=== PATIENT | female | born 1935 | race Caucasian/White ===

== ENCOUNTER 2016-09-09 17:18 | Emergency (ER) | payer MEDICARE, BC ==
[~2016-09-09 17:18] MED LIST: ACET500CAP PO; ALIGN PO; AMITIZA8 MCG PO; ATRONASAL3 NAS; ATV1 PO; B12 INJECTION; BIST PO; CALTRA600D PO; CALTRAT600 PO; CHARCOAL PO; COMBIGAN0.2 MG/0.5 OPH; CORRECTOL5 MG PO; FIBERCON PO; FISH-EPA1000 MG PO; FLORASTOR250 MG PO; GAS-X80 MG PO; HCTZ25B PO; I10 PO; KLOR-CON M2020 MEQ PO; L20 PO; LOTEMAX OPH SUSP5 ML OPH; LUMIGAN2.5 ML OPH; MAG OXIDE250 MG PO; METANX PO; METHOC500B PO; MICRO-K10 MEQ PO; MULTIPLE VIT PO; MVI PO; NEUR100 PO; NORCO1 TA1 PO; PENTASA500 MG PO; PLAVIX PO; PREDFORTE OPH; PRILO PO; PROBIOTIC; PROBIOTIC PO; PROLENSA1.6 ML OPH; PROTONIX PO; REFRESH OPH; RESTASIS OPH; TRIAMCINOLONE C80 GM TOP; TYLENOL ARTH650 MG PO; TYLENOL PM PO; ULTRAM50 PO; VITAMIN D31000 UNIT PO; VITC500 PO; ZANTAC150 MG PO; ZANTAC300 MG PO; [UNRECOGNIZED DRUG - OTHER]; [UNRECOGNIZED DRUG - OTHER] OPH; [UNRECOGNIZED DRUG - OTHER] OPH; [UNRECOGNIZED DRUG - OTHER] PO
== END 2016-09-09 20:44 | disposition home or self-care (01) ==
LOC: ER 17:18
DX: S80.212A Abrasion, left knee, initial encounter (principal); S80.211A Abrasion, right knee, initial encounter; M25.571 Pain in right ankle and joints of right foot; M25.572 Pain in left ankle and joints of left foot; Z88.6 Allergy status to analgesic agent; Z91.048 Other nonmedicinal substance allergy status; Z79.899 Other long term (current) drug therapy; W18.31XA Fall on same level due to stepping on an object, initial encounter
CPT/HCPCS: 71010; 73560-50; 73610-LT; 73610-RT; 74176; 99284